=== PATIENT | female | born 1975 | race African-American/Black ===

== ENCOUNTER 2023-06-02 18:55 | Emergency (ER) | payer MEDICARE ==
[2023-06-02] MEDS ORDERED: Acetaminophen 500 MG TAB ONE (20:23)
[2023-06-02] MEDS ORDERED: Dexamethasone 10 MG/ML VIAL ONE (20:27)
[2023-06-02] MEDS ORDERED: Amoxicillin/Potassium Clav 875 MG TAB ONE (21:01)
[2023-06-02] MEDS ORDERED: AMOXicillin 250 MG CAP PO SCH (21:15)
== END 2023-06-02 21:21 | disposition home or self-care (01) ==
LOC: CSHERS 18:55
DX: J18.9 Pneumonia, unspecified organism (principal); J06.9 Acute upper respiratory infection, unspecified; I10 Essential (primary) hypertension; Z20.822 Contact with and (suspected) exposure to COVID-19
CPT/HCPCS: 71045; 87081; 87430; J1100

== ENCOUNTER 2024-08-05 08:42 | Outpatient (CLI) | payer OTHER | END 2024-08-05 08:43 | disposition home or self-care (01) | LOC: CSHSLEEP 08:42 | PROVIDERS: ATTEND Internal Medicine Critical Care Medicine | DX: G47.33 Obstructive sleep apnea (adult) (pediatric) (principal); E66.9 Obesity, unspecified; Z68.44 Body mass index [BMI] 60.0-69.9, adult; R06.83 Snoring; I10 Essential (primary) hypertension | CPT/HCPCS: 95811 ==